=== PATIENT | female | born 1955 | race Caucasian/White ===

== ENCOUNTER 2017-04-02 16:46 | Emergency (ER) | payer BC ==
[2017-04-02] MEDS ORDERED: Sodium Chloride 0.9% 10 ML Syringe FLUSH PRN (16:55)
[2017-04-02] MEDS ORDERED: Ondansetron 4 MG/2 ML SDV IV ONE (16:57)
[2017-04-02] MEDS ORDERED: Sodium Chloride 0.9% 1,000 ML IV ONE (16:57)
[2017-04-02] MEDS ORDERED: Meclizine 12.5 MG Tab PO ONE (17:35)
[2017-04-02 17:36] VITALS: BP 159/64
[2017-04-02] MEDS ORDERED: Dexamethasone 4 MG/ML SDV IVPUSH ONE (17:36)
[2017-04-02 17:43] LABS: CHLORIDE,CL 94 mmol/L (101-111); SODIUM,NA 131 mmol/L (135-145)
[2017-04-02] MEDS ORDERED: Potassium Chloride 10 MEQ Tab.ER PO ONE (17:54)
--- NOTE | 2017-04-02 18:18 | EDM.PDOC ---
Scribed by Suha Land 04/02/17 [id number] for Les Vivar MD ED HPI GENERAL MEDICAL PROBLEM - General Chief Complaint: Gastrointestinal Problem Stated Complaint: sick Time Seen by Provider: 04/02/17 16:55 Source of Information: Reports: Patient, RN, RN Notes Reviewed History Limitations: Reports: No Limitations - History of Present Illness INITIAL COMMENTS - FREE TEXT/NARRATIVE: Arrives from home by private vehicle with complaint of onset of chills with nausea and vomiting 2 days ago. She reports some abdominal discomfort. Denies pain. Denies diarrhea, constipation, urinary symptoms or fevers. She later states that she has felt hot and cold, but she did not check her temperature. Location: Reports: Abdomen Quality: Reports: Ache Severity: Moderate Improves with: Reports: None Worsens with: Reports: None Associated Symptoms: Reports: No Other Symptoms - Related Data Allergies Allergy/AdvReac Type Severity Reaction Status Date / Time No Known Allergies Allergy Verified 04/02/17 17:32 Home Meds: Home Meds Atenolol [Tenormin] 50 mg PO DAILY 10/01/13 [History] Calcium Carbonate/Vitamin D3 [Calcium 250+D] 1 each PO DAILY 10/01/13 [History] Hydrochlorothiazide 25 mg PO DAILY 10/01/13 [History] Lisinopril 40 mg PO DAILY 10/01/13 [History] Multivitamin [Multi Vitamin Daily] 1 each PO DAILY 10/01/13 [History] atorvaSTATin [Lipitor] 80 mg PO BEDTIME 10/01/13 [History] Aspirin/Calcium Carbonate/Mag [Aspirin Buffered 325 mg Tab] 325 mg PO DAILY [History] Nitroglycerin [Nitrostat] 0.4 mg SL ASDIRECTED PRN 07/12/14 [History] Metoprolol Succinate 50 mg PO DAILY 04/02/17 [History] Past Medical History HEENT History: Reports: Impaired Vision, Other (See Below) Other HEENT History: ringing ears, vertigo Cardiovascular History: Reports: CAD, High Cholesterol, Hypertension, Stents Respiratory History: Reports: None Gastrointestinal History: Reports: GI Bleed Genitourinary History: Reports: UTI, Recurrent 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 Musculoskeletal History: Reports: Arthritis, Fracture Neurological History: Reports: None Psychiatric History: Reports: None Endocrine/Metabolic History: Reports: None Hematologic History: Reports: None Immunologic History: Reports: None Oncologic (Cancer) History: Reports: None Dermatologic History: Reports: None - Infectious Disease History Infectious Disease History: Reports: Chicken Pox, Measles - Past Surgical History Cardiovascular Surgical History: Reports: Coronary Artery Stent Social & Family History - Family History Family Medical History: Noncontributory - Tobacco Use Smoking Status *Q: Former Smoker Second Hand Smoke Exposure: Yes - Caffeine Use Caffeine Use: Reports: Coffee - Alcohol Use Days Per Week of Alcohol Use: 0 - Recreational Drug Use Recreational Drug Use: No - Living Situation & Occupation Living situation: Reports: , with Spouse ED ROS GENERAL - Review of Systems Review Of Systems: ROS reveals no pertinent complaints other than HPI. ED EXAM, GENERAL - Physical Exam Exam: See Below Exam Limited By: No Limitations General Appearance: Alert, WD/WN, No Apparent Distress, Other (uncomfortable appearing. ) Eye Exam: Bilateral Eye: Normal Inspection (lateral gaze nystagmus.) Ears: Hearing Grossly Normal Nose: Normal Inspection, Normal Mucosa, No Blood Throat/Mouth: Normal Lips, Normal Teeth, Normal Gums, Normal Oropharynx, Normal Voice, No Airway Compromise, Other (dry oral membranes) Head: Atraumatic, Normocephalic Neck: Normal Inspection, Supple, Non-Tender, Full Range of Motion Respiratory/Chest: No Respiratory Distress, Lungs Clear, No Accessory Muscle Use , Decreased Breath Sounds Cardiovascular: Regular Rate, Rhythm, No Edema GI/Abdominal: Normal Bowel Sounds, Soft, Non-Tender, No Distention. No: Guarding, Rigid, Rebound (Female) Exam: Deferred Rectal (Female) Exam: Deferred Back Exam: Normal Inspection, Full Range of Motion, NT Extremities: Normal Inspection, Normal Range of Motion, Non-Tender, Normal Capillary Refill, No Pedal Edema Neurological: Alert, Oriented, CN II-XII Intact, Normal Cognition, Normal Gait, No Motor/Sensory Deficits Psychiatric: Normal Affect, Normal Mood Skin Exam: Warm, Dry, Intact, No Rash, Pallor EKG INTERPRETATION EKG Date: 04/02/17 Time: 17:13 Rhythm: Other (sinus bradycardia) Rate (Beats/Min): 54 Vendor: Normal P-Wave: Present QRS: Normal ST-T: Normal QT: Normal Course - Vital Signs Last Recorded V/S: Last Vital Signs Temp 35.9 C 04/02/17 17:00 Pulse 55 L 04/02/17 17:00 Resp 16 04/02/17 17:00 BP 159/64 H 04/02/17 17:00 Pulse Ox 97 04/02/17 17:00 - Orders/Labs/Meds Orders: Active Orders 24 hr Category Date Time Status EKG 12 Lead [EKG Documentation Completion] [] STAT Care 04/02/17 16:56 Active Peripheral IV Care [RC] . DIRECTED Care 04/02/17 16:56 Active CULTURE BLOOD [BC] Stat Lab 04/02/17 17:09 Received CULTURE BLOOD [BC] Stat Lab 04/02/17 17:13 Received UA W/MICROSCOPIC [URIN] Stat Lab 04/02/17 16:56 Uncollected Sodium Chloride 0.9% [Saline Flush] Med 04/02/17 16:55 Active 10 ml FLUSH ASDIRECTED PRN Blood Culture x2 Reflex Set [OM.PC] Stat Oth 04/02/17 16:56 Ordered Peripheral IV Insertion Adult [OM.PC] Stat Oth 04/02/17 16:56 Ordered Medication Orders Sodium Chloride (Saline Flush) 10 ml FLUSH ASDIRECTED PRN PRN Reason: Keep Vein Open Last Admin: 04/02/17 17:18 Dose: 10 ml Labs: Laboratory Tests 04/02/17 04/02/17 Range/Units 17:13 17:13 WBC 9.5 (5.0-10.0) 10^3/uL RBC 5.19 (4.2-5.4) 10^6/uL Hgb 14.7 (12.0-16.0) g/dL Hct 43.7 (37.0-47.0) % MCV 84.2 (80-100) fL MCH 28.3 (27.0-34.0) pg MCHC 33.6 (33.0-35.0) g/dL Plt Count 234 (150-450) 10^3/uL Neut % (Auto) 74.9 (42.2-75.2) % Lymph % (Auto) 17.3 L (20.5-50.1) % [place] % (Auto) 7.1 (2-8) % Eos % (Auto) 0.5 L (1.0-3.0) % Baso % (Auto) 0.2 (0.0-1.0) % Sodium 131 L (135-145) mmol/L Potassium 3.3 L (3.6-5.0) mmol/L Chloride 94 L (101-111) mmol/L Carbon Dioxide 24.0 (21.0-31.0) mmol/L Anion Gap 16.3 BUN 11 (7-18) mg/dL Creatinine 0.9 (0.6-1.3) mg/dL Est Cr Clr Drug Dosing 47.65 mL/min Estimated GFR (MDRD) > 60 BUN/Creatinine Ratio 12.22 Glucose 113 H (74-105) mg/dL Calcium 9.0 (8.4-10.2) mg/dl Total Bilirubin 1.0 (0.2-1.0) mg/dL AST 36 (10-42) IU/L ALT 33 (10-60) IU/L Alkaline Phosphatase 93 (42-121) IU/L Troponin I < 0.02 (0.00-0.02) ng/ml Total Protein 7.2 (6.7-8.2) g/dl Albumin 3.9 (3.2-5.5) g/dl Globulin 3.3 Albumin/Globulin Ratio 1.18 Amylase 50 (28-100) U/L Lipase 32 (22-51) U/L Meds: Medications Generic Name Dose Route Start Last Admin Trade Name Freq PRN Reason Stop Dose Admin Sodium Chloride 10 ml 04/02/17 16:55 04/02/17 17:18 Saline Flush FLUSH 10 ml ASDIRECTED PRN Administration Keep Vein Open Discontinued Medications Generic Name Dose Route Start Last Admin Trade Name Anika PRN Reason Stop Dose Admin Dexamethasone 20 mg 04/02/17 17:36 04/02/17 17:46 Dexamethasone IVPUSH 04/02/17 17:37 20 mg ONETIME ONE Administration Diazepam 2.5 mg 04/02/17 17:35 04/02/17 17:52 Valium IVPUSH 04/02/17 17:36 2.5 mg ONETIME ONE Administration Sodium Chloride 1,000 mls @ 999 mls/hr 04/02/17 16:57 04/02/17 17:18 Normal Saline IV 04/02/17 17:57 999 mls/hr .BOLUS ONE Administration Meclizine HCl 25 mg 04/02/17 17:35 04/02/17 17:49 Antivert PO 04/02/17 17:36 25 mg ONETIME ONE Administration Ondansetron HCl 4 mg 04/02/17 16:57 04/02/17 17:16 Zofran IV 04/02/17 16:58 4 mg ONETIME ONE Administration Potassium Chloride 20 meq 04/02/17 17:54 Klor-Con 10 PO 04/02/17 17:55 ONETIME ONE Departure - Departure Time of Disposition: 18:16 Disposition: Home, Self-Care 01 Condition: Fair Clinical Impression: Vertigo - Discharge Information Instructions: Vertigo, [id number] Forms: ED Department Discharge Additional Instructions: RX: Meclizine 25mg. Follow up in clinic if not improving in 2 to 3 days. - My Orders Last 24 Hours: My Active Orders 04/02/17 16:55 Sodium Chloride 0.9% [Saline Flush] 10 ml FLUSH ASDIRECTED PRN 04/02/17 16:56 EKG 12 Lead [EKG Documentation Completion] [RC] STAT Peripheral IV Care [RC] . DIRECTED UA W/MICROSCOPIC [URIN] Stat Blood Culture x2 Reflex Set [OM.PC] Stat Peripheral IV Insertion Adult [OM.PC] Stat 04/02/17 17:09 CULTURE BLOOD [BC] Stat 04/02/17 17:13 CULTURE BLOOD [BC] Stat - Assessment/Plan Last 24 Hours: My Active Orders 04/02/17 16:55 Sodium Chloride 0.9% [Saline Flush] 10 ml FLUSH ASDIRECTED PRN 04/02/17 16:56 EKG 12 Lead [EKG Documentation Completion] [RC] STAT Peripheral IV Care [RC] . DIRECTED UA W/MICROSCOPIC [URIN] Stat Blood Culture x2 Reflex Set [OM.PC] Stat Peripheral IV Insertion Adult [OM.PC] Stat 04/02/17 17:09 CULTURE BLOOD [BC] Stat 04/02/17 17:13 CULTURE BLOOD [BC] Stat I have read and agree with the documentation that has been completed regarding this visit. By signing this record, I attest that the documentation was completed in my physical presence and is an accurate record of the encounter.
--- NOTE | 2017-04-24 09:54 | EKG ---
04/02/2017- FLIP LOMELI - This is a 12-lead standard EKG showing normal sinus rhythm with bradycardia. Ventricular rate of 54 beats per minute. Normal QRS duration and CA interval. No significant ST-T changes. [facility] /[id number]
== END 2017-04-02 18:37 | disposition home or self-care (01) ==
LOC: DL.ED 16:46
DX: R42 Dizziness and giddiness (principal); I10 Essential (primary) hypertension; I25.10 Atherosclerotic heart disease of native coronary artery without angina pectoris; E78.00 Pure hypercholesterolemia, unspecified; M19.90 Unspecified osteoarthritis, unspecified site; Z95.5 Presence of coronary angioplasty implant and graft; Z87.440 Personal history of urinary (tract) infections; Z87.891 Personal history of nicotine dependence; Z79.899 Other long term (current) drug therapy; Z79.82 Long term (current) use of aspirin
CPT/HCPCS: 36415; 80053; 82150; 83690; 84484; 85025; 87040; 93005; 96365; 96375; 99284; A9270; J1100; J2405; J3360; J7030; J7050

== ENCOUNTER 2017-05-14 18:30 | Inpatient (IN) | payer BC ==
--- NOTE | 2017-05-14 18:39 | EDM.PDOC ---
<Jude Bravo - Last Filed: 05/14/17 18:42> ED HPI GENERAL MEDICAL PROBLEM - General Chief Complaint: General Stated Complaint: FAINT AND THROWING UP [id number] Time Seen by Provider: 05/14/17 18:38 Source of Information: Reports: Patient History Limitations: Reports: No Limitations - History of Present Illness INITIAL COMMENTS - FREE TEXT/NARRATIVE: 62 yo white female c/o vertigo symptoms since noon today. Pt. recently seen in this ER for same Onset: Today Onset Date: 05/14/17 Onset Time: 12:00 Duration: Hour(s): Location: Reports: Generalized Severity: Moderate Improves with: Reports: Rest Worsens with: Reports: Movement Associated Symptoms: Reports: No Other Symptoms - Related Data Allergies Allergy/AdvReac Type Severity Reaction Status Date / Time No Known Allergies Allergy Verified 05/14/17 18:43 Home Meds: Home Meds Calcium Carbonate/Vitamin D3 [Calcium 250+D] 1 each PO DAILY 10/01/13 [History] Hydrochlorothiazide 25 mg PO DAILY 10/01/13 [History] Lisinopril 40 mg PO DAILY 10/01/13 [History] Multivitamin [Multi Vitamin Daily] 1 each PO DAILY 10/01/13 [History] atorvaSTATin [Lipitor] 80 mg PO BEDTIME 10/01/13 [History] Aspirin/Calcium Carbonate/Mag [Aspirin Buffered 325 mg Tab] 325 mg PO DAILY [History] Nitroglycerin [Nitrostat] 0.4 mg SL ASDIRECTED PRN 07/12/14 [History] Metoprolol Succinate 50 mg PO DAILY 04/02/17 [History] Past Medical History HEENT History: Reports: Impaired Vision, Other (See Below) Other HEENT History: ringing ears, vertigo Cardiovascular History: Reports: CAD, High Cholesterol, Hypertension, Stents Respiratory History: Reports: None Gastrointestinal History: Reports: GI Bleed Genitourinary History: Reports: UTI, Recurrent 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 Musculoskeletal History: Reports: Arthritis, Fracture Neurological History: Reports: None Psychiatric History: Reports: None Endocrine/Metabolic History: Reports: None Hematologic History: Reports: None Immunologic History: Reports: None Oncologic (Cancer) History: Reports: None Dermatologic History: Reports: None - Infectious Disease History Infectious Disease History: Reports: Chicken Pox, Measles - Past Surgical History Cardiovascular Surgical History: Reports: Coronary Artery Stent Social & Family History - Family History Family Medical History: Noncontributory - Tobacco Use Smoking Status *Q: Former Smoker Used Tobacco, but Quit: Yes Month Tobacco Last Used: unsure Second Hand Smoke Exposure: Yes - Caffeine Use Caffeine Use: Reports: Coffee - Alcohol Use Days Per Week of Alcohol Use: 0 - Recreational Drug Use Recreational Drug Use: No - Living Situation & Occupation Living situation: Reports: , with Spouse ED ROS GENERAL - Review of Systems Review Of Systems: See Below Constitutional: Reports: No Symptoms HEENT: Reports: No Symptoms Respiratory: Reports: No Symptoms Cardiovascular: Reports: No Symptoms Endocrine: Reports: No Symptoms GI/Abdominal: Reports: No Symptoms : Reports: No Symptoms Musculoskeletal: Reports: No Symptoms Skin: Reports: No Symptoms Neurological: Reports: Dizziness Psychiatric: Reports: No Symptoms Hematologic/Lymphatic: Reports: No Symptoms Immunologic: Reports: No Symptoms ED EXAM, GENERAL - Physical Exam Exam: See Below Exam Limited By: No Limitations General Appearance: Alert, No Apparent Distress Eye Exam: Bilateral Eye: EOMI, PERRL Ears: Normal External Exam Ear Exam: Bilateral Ear: TM normal Nose: Normal Inspection Throat/Mouth: Normal Inspection Head: Atraumatic Neck: Normal Inspection Respiratory/Chest: No Respiratory Distress, Lungs Clear Cardiovascular: Normal Peripheral Pulses, Regular Rate, Rhythm, No Edema Peripheral Pulses: 2+: Radial (L), Radial (R) GI/Abdominal: Normal Bowel Sounds, Soft Back Exam: Normal Inspection Extremities: Normal Inspection Neurological: Alert, Oriented, CN II-XII Intact, Other (room spinning sensation) Psychiatric: Normal Affect Skin Exam: Warm Lymphatic: No Adenopathy Course - Vital Signs Last Recorded V/S: Last Vital Signs Temp 35.3 C 05/14/17 18:51 Pulse 56 L 05/14/17 18:37 Resp 18 05/14/17 18:37 BP 153/64 H 05/14/17 18:37 Pulse Ox 99 05/14/17 18:37 - Orders/Labs/Meds Orders: Active Orders 24 hr Category Date Time Status TROPONIN I [CHEM] Stat Lab 05/14/17 19:58 Ordered Potassium Chloride [Klor-Con 10] Med 05/14/17 19:57 Once 40 meq PO ONETIME ONE Medication Orders Potassium Chloride (Klor-Con 10) 40 meq PO ONETIME ONE Stop: 05/14/17 19:58 Labs: Laboratory Tests 05/14/17 05/14/17 Range/Units 18:38 18:38 WBC 10.6 H (5.0-10.0) 10^3/uL RBC 4.96 (4.2-5.4) 10^6/uL Hgb 14.1 (12.0-16.0) g/dL Hct 40.8 (37.0-47.0) % MCV 82.3 (80-100) fL MCH 28.4 (27.0-34.0) pg MCHC 34.6 (33.0-35.0) g/dL Plt Count 280 (150-450) 10^3/uL Neut % (Auto) 60.0 (42.2-75.2) % Lymph % (Auto) 27.5 (20.5-50.1) % [place] % (Auto) 9.9 H (2-8) % Eos % (Auto) 2.0 (1.0-3.0) % Baso % (Auto) 0.6 (0.0-1.0) % Sodium 125 L (135-145) mmol/L Potassium 2.5 L (3.6-5.0) mmol/L Chloride 89 L (101-111) mmol/L Carbon Dioxide 20.0 L (21.0-31.0) mmol/L Anion Gap 18.5 BUN 14 (7-18) mg/dL Creatinine 0.7 (0.6-1.3) mg/dL Est Cr Clr Drug Dosing 61.27 mL/min Estimated GFR (MDRD) > 60 BUN/Creatinine Ratio 20.00 Glucose 142 H (74-105) mg/dL Calcium 9.0 (8.4-10.2) mg/dl Total Bilirubin 1.3 H (0.2-1.0) mg/dL AST 35 (10-42) IU/L ALT 31 (10-60) IU/L Alkaline Phosphatase 102 (42-121) IU/L Total Protein 7.0 (6.7-8.2) g/dl Albumin 3.9 (3.2-5.5) g/dl Globulin 3.1 Albumin/Globulin Ratio 1.26 Meds: Medications Generic Name Dose Route Start Last Admin Trade Name Freq PRN Reason Stop Dose Admin Potassium Chloride 40 meq 05/14/17 19:57 Klor-Con 10 PO 05/14/17 19:58 ONETIME ONE Discontinued Medications Generic Name Dose Route Start Last Admin Trade Name Anika PRN Reason Stop Dose Admin Meclizine HCl 12.5 mg 05/14/17 18:45 05/14/17 18:58 Antivert PO 05/14/17 18:46 12.5 mg ONETIME ONE Administration Ondansetron HCl 4 mg 05/14/17 18:58 05/14/17 19:19 Zofran IV 05/14/17 18:59 4 mg ONETIME ONE Administration Departure - Departure Disposition: Admitted As Inpatient 64 Clinical Impression: Dizziness Syncope Qualifiers: Syncope type: unspecified Qualified Code(s): R55 - Syncope and collapse - Discharge Information Forms: ED Department Discharge - My Orders Last 24 Hours: My Active Orders 05/14/17 19:57 Potassium Chloride [Klor-Con 10] 40 meq PO ONETIME ONE 05/14/17 19:58 TROPONIN I [CHEM] Stat - Assessment/Plan Last 24 Hours: My Active Orders 05/14/17 19:57 Potassium Chloride [Klor-Con 10] 40 meq PO ONETIME ONE 05/14/17 19:58 TROPONIN I [CHEM] Stat <Kt Lopez - Last Filed: 05/14/17 19:59> Course - Re-Assessments/Exams Free Text/Narrative Re-Assessment/Exam: 05/14/17 18:59 re-exam; states this is 3rd time. gets nauseous and dizzy when moves. PMD Tx her with PT did feel better but not permanent. today Sx returned. 05/14/17 19:46 results discussed with pt who is feeling slightly better with nausea but still unsteady. 05/14/17 19:[address] Ennis who kindly admitted pt. Departure - Departure Time of Disposition: 19:59 Condition: Good - My Orders Last 24 Hours: My Active Orders 05/14/17 19:57 Potassium Chloride [Klor-Con 10] 40 meq PO ONETIME ONE 05/14/17 19:58 TROPONIN I [CHEM] Stat - Assessment/Plan Last 24 Hours: My Active Orders 05/14/17 19:57 Potassium Chloride [Klor-Con 10] 40 meq PO ONETIME ONE 05/14/17 19:58 TROPONIN I [CHEM] Stat
[2017-05-14] MEDS ORDERED: Meclizine 12.5 MG Tab PO ONE (18:45)
[2017-05-14] MEDS ORDERED: Ondansetron 4 MG/2 ML SDV IV ONE (18:58)
[2017-05-14 19:13] LABS: CHLORIDE,CL 89 mmol/L (101-111); SODIUM,NA 125 mmol/L (135-145)
[2017-05-14] MEDS ORDERED: Potassium Chloride 10 MEQ Tab.ER PO ONE ×2 (19:57→21:43)
--- NOTE | 2017-05-14 21:03 | PCM.HP ---
H&P History of Present Illness - General Date of Service: 05/14/17 Admit Problem/Dx: pt admitted with: Severe Hypokalemia, Hyponatremia and C/O Vertigo (Spining) with ringing in ear Source of Information: Patient, Old Records History Limitations: Reports: No Limitations - History of Present Illness Initial Comments - Free Text/Narative: Nereyda Sahni~is a 61 y.o.~female with a medical history significant for hypertension, hyperlipidemia, coronary artery disease, and carotid artery disease status post multiple stents placed in the past. Her last stent was in [address] Santamaria. She had last Angiogram in 2014 showed patent stent in LAD . Today she presented to ED with Nausea, lightheadedness and unsteadiness, ringing in ear. she was seen by Nu[facility] at [facility] ( Dr. Chaparro), and also seen by Reinforced Steel Placing Supervisor and Motorcycle Mechanic Apprentice, She also says she hears heart beat in Rt eat all the time. In ED she CT of head again today ( 05/14/17) and the Impression was: No CT evidence for an acute Intracranial abnormality, Onset of Symptoms: Reports: Gradual Duration of Symptoms: Reports: Recurring - Related Data Allergies/Adverse Reactions: Allergies Allergy/AdvReac Type Severity Reaction Status Date / Time No Known Allergies Allergy Verified 05/14/17 18:43 Home Medications: Home Meds Calcium Carbonate/Vitamin D3 [Calcium 250+D] 1 each PO DAILY 10/01/13 [History] Hydrochlorothiazide 25 mg PO DAILY 10/01/13 [History] Lisinopril 40 mg PO DAILY 10/01/13 [History] Multivitamin [Multi Vitamin Daily] 1 each PO DAILY 10/01/13 [History] atorvaSTATin [Lipitor] 80 mg PO BEDTIME 10/01/13 [History] Aspirin/Calcium Carbonate/Mag [Aspirin Buffered 325 mg Tab] 325 mg PO DAILY [History] Nitroglycerin [Nitrostat] 0.4 mg SL ASDIRECTED PRN 07/12/14 [History] Metoprolol Succinate 50 mg PO DAILY 04/02/17 [History] Past Medical History HEENT History: Reports: Impaired Vision, Other (See Below) Other HEENT History: ringing ears, vertigo Cardiovascular History: Reports: CAD, High Cholesterol, Hypertension, Stents Respiratory History: Reports: None Gastrointestinal History: Reports: GI Bleed Genitourinary History: Reports: UTI, Recurrent 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 Musculoskeletal History: Reports: Arthritis, Fracture Neurological History: Reports: None Psychiatric History: Reports: None Endocrine/Metabolic History: Reports: None Hematologic History: Reports: None Immunologic History: Reports: None Oncologic (Cancer) History: Reports: None Dermatologic History: Reports: None - Infectious Disease History Infectious Disease History: Reports: Chicken Pox, Measles - Past Surgical History Cardiovascular Surgical History: Reports: Coronary Artery Stent Social & Family History - Family History Family Medical History: Noncontributory - Tobacco Use Smoking Status *Q: Never Smoker Used Tobacco, but Quit: Yes Month Tobacco Last Used: unsure Second Hand Smoke Exposure: No - Caffeine Use Caffeine Use: Reports: Coffee - Alcohol Use Days Per Week of Alcohol Use: 0 - Recreational Drug Use Recreational Drug Use: No - Living Situation & Occupation Living situation: Reports: , with Spouse H&P Review of Systems - Review of Systems: Review Of Systems: See Below General: Reports: Other (hear heart beat all the time in Rt ear and ringing with spining ). Denies: Fever, Chills, Weakness, Fatigue, Weight Loss HEENT: Reports: Vertigo, Other (spining ear ringing). Denies: Ear Pain, Eye Pain, Headaches, Visual Changes Pulmonary: Denies: Shortness of Breath, Wheezing, Pleuritic Chest Pain, Cough, Sputum Cardiovascular: Denies: Chest Pain, Palpitations, Dyspnea on Exertion, Lightheadedness, Syncope Gastrointestinal: Reports: Vomiting (once). Denies: Abdominal Pain, Diarrhea, Difficulty Swallowing, Nausea Genitourinary: Denies: Dysuria, Frequency, Burning, Urgency Musculoskeletal: Denies: Neck Pain, Shoulder Pain, Back Pain, Joint Swelling, Muscle Pain Skin: Denies: Cyanosis, Jaundice, Dryness, Bruising, Rash Psychiatric: Reports: No Symptoms Neurological: Reports: Dizziness, Difficulty Walking, Gait Disturbance Exam - Exam Exam: See Below - Vital Signs Vital Signs: Last Vital Signs Temp 35.3 C 05/14/17 18:51 Pulse 56 L 05/14/17 18:37 Resp 18 05/14/17 18:37 BP 153/64 H 05/14/17 18:37 Pulse Ox 99 05/14/17 18:37 Weight: 70.307 kg - Exam Quality Assessment: DVT Prophylaxis. No: Supplemental Oxygen, Urinary Catheter General: Alert, Oriented, Cooperative HEENT: Conjunctiva Clear, Mucosa Moist & [place], Pupils Equal, Other (decreased hearing in rt ear) Neck: Supple. No: Lymphadenopathy, JVD Lungs: Clear to Auscultation, Normal Respiratory Effort. No: Crackles, Wheezing Cardiovascular: Regular Rate, Regular Rhythm GI/Abdominal Exam: Normal Bowel Sounds, Soft, Non-Tender, No Organomegaly, No Distention. No: Guarding, Rigid, Rebound, Tender (Female) Exam: Deferred Rectal (Female) Exam: Deferred Back Exam: Normal Inspection, Full Range of Motion Extremities: Normal Inspection, No Pedal Edema Skin: Warm, Intact Neurological: Cranial Nerves Intact, Reflexes Equal Bilateral Neuro Extensive - Mental Status: Alert, Oriented x3, Normal Mood/Affect, Normal Cognition, Memory Intact Neuro Extensive - Motor, Sensory, Reflexes: CN II-XII Intact, Normal Reflexes Psychiatric: Alert, Normal Affect, Normal Mood - Patient Data Result Diagrams: 05/14/17 18:38 05/14/17 18:38 *Q Meaningful Use (ADM) - VTE *Q VTE Criteria *Q: - Stroke *Q Stroke Criteria *Q: - AMI *Q AMI Criteria *Q: - Problem List (1) Hyponatremia SNOMED Code(s): 34742195 ICD Code: E87.1 - HYPO-OSMOLALITY AND HYPONATREMIA Status: Acute Current Visit: Yes (2) Hypokalemia SNOMED Code(s): 10539466 ICD Code: E87.6 - HYPOKALEMIA Status: Acute Current Visit: Yes (3) Dizziness SNOMED Code(s): 773596327 ICD Code: R42 - DIZZINESS AND GIDDINESS Status: Acute Current Visit: Yes (4) Vertigo SNOMED Code(s): 450928630 ICD Code: R42 - DIZZINESS AND GIDDINESS Status: Acute Current Visit: No (5) HTN (hypertension) SNOMED Code(s): 93299569 ICD Code: I10 - ESSENTIAL (PRIMARY) HYPERTENSION Status: Acute Current Visit: Yes Problem List Initiated/Reviewed/Updated: Yes Assessment/Plan Comment:: 62 Y/O Female presented with Severe Tinnitus with Vertigo and severe Hypokalemia and Hyponatremia. Her past history significant for hypertension, Hyperlipidemia and CAD with Stent 1. Severe Hypokalemia: The etiolgy not clear may be poor oral intake but her potassium was at 2.5 meq.L -Will give potassium chloride 40 meq oral and 40 meq IV and will check potassium 1 hr after the completion =Will start IV fluids NS at 100 ml/hr x 12 hrs 2. Hyponatremia: This is also likely poor oral itake as weel the presence of HCTZ -Will stop HCTZ and will start IVF ( NS at 100 ml/hr) -Recheck sodium along with potassium -she has no symptom of hyponatremia and will not start oral sdalt tablet or 3% saline infusion -Will check Urine sodium, urine osmolality and serum osmolality and Uric acid level ( all will take time to get the result) 3. Severe Tinitus with Vertigo: she has been suffering with this for more than a month -She had CT/MRI and was seen by Neurologist, Reinforced Steel Placing Supervisor and Otolaringologist but so far no significant finding -Advise to schedule appointment with Neurologist 4. Hypertension: Bp acceptable and will continue Lisinopril 5. DVT prophylaxis: Continue enoxapain 6. Code Status : Full code 1
[2017-05-14] MEDS ORDERED: Acetaminophen 325 MG Tab PO PRN (21:36)
[2017-05-14] MEDS ORDERED: Docusate Sodium 100 MG Cap PO PRN (21:36)
[2017-05-14] MEDS ORDERED: Potassium Chloride 10 MEQ in Premix Bag 4 BAG IV ONE (21:44)
[2017-05-14] MEDS ORDERED: NS + KCl 20mEq/L 1,000 ML IV SCH (21:45)
[2017-05-14] MEDS ORDERED: Ondansetron 4 MG/2 ML SDV IV PRN (21:48)
[2017-05-14] MEDS: Potassium Chloride 10 MEQ in Premix Bag 1 BAG IV SCH ×2 (22:29→23:52)
[2017-05-15] MEDS: Potassium Chloride 10 MEQ in Premix Bag 1 BAG IV SCH ×2 (01:11→02:34)
[2017-05-15 06:04] LABS: CHLORIDE,CL 99 mmol/L (101-111); SODIUM,NA 132 mmol/L (135-145)
[2017-05-15] MEDS ORDERED: Sodium Chloride 0.9% 1,000 ML IV SCH (06:15)
[2017-05-15] MEDS ORDERED: Aspirin 81 MG Tab.Chew PO SCH (08:00)
[2017-05-15] MEDS ORDERED: atorvaSTATin 20 MG Tab PO SCH (09:00)
[2017-05-15] MEDS ORDERED: Multivitamins,Therapeutic Tab PO SCH (09:00)
[2017-05-15] MEDS ORDERED: Calcium Carbonate/Vitamin D3 1250 MG-200 Unit Tab PO SCH (09:00)
[2017-05-15] MEDS ORDERED: Lisinopril 20 MG Tab PO SCH (09:00)
[2017-05-15] MEDS ORDERED: Metoprolol Succinate 50 MG Tab.ER PO SCH (09:00)
[2017-05-15] MEDS ORDERED: Enoxaparin 40 MG/0.4 ML Syringe SUBCUT SCH (09:00)
[2017-05-15 12:57] VITALS: BP 125/57
[2017-05-16] MEDS ORDERED: Potassium Chloride 10 MEQ in Premix Bag 1 BAG IV SCH (02:00)
--- NOTE | 2017-05-16 04:33 | DISCH ---
DISCHARGE DIAGNOSES: 1. Acute hypokalemia, resolved. 2. Acute hyponatremia, improved. 3. Nausea and vomiting, resolved. 4. Vertigo, resolved. 5. Coronary artery disease with stents by history in 2010 with repeat angio in 2014. 6. Hypertension by history. 7. Long-term hydrochlorothiazide use, discontinued during this admission. BRIEF HISTORY OF PRESENT ILLNESS: Nereyda Sahni is a 62-year-old lady who presented to the Emergency Department on the day of admission. She had been throwing up. She felt faint, but there was no syncope or near syncope. She had previous episodes of feeling nauseous, lightheaded, and unsteady with ringing in the ears and had been seen by Neurology as well as Audiology and ENT, that workup was unremarkable. She again presents to the ER with similar symptoms. Workup in the ER revealed electrolyte abnormalities, and she was admitted for management of her hypokalemia and hyponatremia. PERTINENT LABS AND X-RAYS: CBC on the day of admission showed white count 10.6, hemoglobin and hematocrit of 14 and 40.8, and platelets were normal. Chemistry showed sodium of 125 and potassium of 2.5, which had corrected to 132 and 5.2, respectively on the day of discharge. BUN and creatinine of 9 and 0.8 with a GFR of more than 60. LFTs were unremarkable. Troponin was negative at less than 0.02. A noncontrast CT scan of the head showed no acute intracranial abnormality. There was a focal lucency within the right frontal calvarium, which might reflect a prominent arachnoid granulation, but no other findings of concern. She was on telemetry while receiving IV potassium. Telemetry showed a normal sinus rhythm without ectopy. HOSPITAL COURSE: Ms. Sahni was admitted as an acute inpatient for her electrolyte disturbances. She was given 1 dose of meclizine for dizziness and Zofran for p.r.n. nausea and vomiting. She received potassium supplement both by the oral route and IV. Enoxaparin was used for VTE prophylaxis. Normal saline with additional potassium was also given. She did well overnight. Vital signs were stable. Repeat lab work in the morning showed correction of the sodium and potassium. She was feeling well and felt she could be discharged to home. Review of her clinical data shows good oral intake. She was voiding well. She was tolerating her diet. Vital signs were stable, and she was afebrile. DISCHARGE PHYSICAL EXAMINATION: General: On the morning of discharge, she was sitting comfortably in bed. Vital Signs: Blood pressure was 118/58 and prior to discharge 125/57, pulse 58 and regular, respiratory rate 20, oxygen saturation 96% on room air, and temperature 97.1. Weight 155 pounds and height 5 feet 1 inch. HEENT: Unremarkable. ENT was clear. Chest: Clear. Heart: Regular. Abdomen: Benign. Neurologic: She was intact. She was alert and oriented without deficits. DISPOSITION: She will be discharged to home in stable condition. Prior to hospitalization, she was on hydrochlorothiazide 25 mg daily and had been on that for quite some time. The hydrochlorothiazide was discontinued as this may be a contributing factor to the hyponatremia and hypokalemia. DISCHARGE MEDICATIONS: Include: 1. Atorvastatin 80 mg daily. 2. Nitroglycerin p.r.n. 3. Multivitamin 1 tablet daily. 4. Metoprolol succinate 50 mg daily. 5. Lisinopril 40 mg daily. 6. Calcium carbonate with vitamin D3 one tablet daily. 7. Aspirin EC 81 mg daily. ALLERGIES: No known allergies. We asked that she return to clinic at the end of this week, and we have ordered a repeat sodium, potassium, and magnesium. She will follow up with her primary provider, Dr. Almaguer. She does have an appointment to see him on 07/06. She will call Dr. Almaguer's nurse on Monday to get the results of the repeat lab work. Otherwise, she will follow usual diet and activity level as tolerated. She may drive and shower, and she should return to clinic or ER for any symptoms of concern. CONDITION AT TIME OF DISCHARGE: Much improved and stable. CODE STATUS DURING THIS ADMISSION: Full code. [facility] /[id number]
== END 2017-05-15 14:40 | disposition home or self-care (01) | DRG 425 ==
LOC: DL.ED 18:30 → INTOOBSV 20:31 → OBSVTOIN 20:31 → UNDOADMOB 20:31 → DL.MS 20:31 → OBSVTOIN 21:36 → DL.MS 21:36
PROVIDERS: ADMIT Internal Medicine Nephrology; ATTEND Internal Medicine Nephrology
DX: E87.6 Hypokalemia (principal); E87.1 Hypo-osmolality and hyponatremia; R55 Syncope and collapse; R42 Dizziness and giddiness; H93.19 Tinnitus, unspecified ear; R11.2 Nausea with vomiting, unspecified; I25.10 Atherosclerotic heart disease of native coronary artery without angina pectoris; I10 Essential (primary) hypertension; Z95.5 Presence of coronary angioplasty implant and graft; E78.00 Pure hypercholesterolemia, unspecified; H54.7 Unspecified visual loss; M19.90 Unspecified osteoarthritis, unspecified site; Z79.82 Long term (current) use of aspirin; Z79.899 Other long term (current) drug therapy; Z87.891 Personal history of nicotine dependence
CPT/HCPCS: 36415; 70450; 80048; 80053; 83735; 84484; 85025; 96374; 99285; A9270-GY; J1650; J2405; J3480; J7030

== ENCOUNTER 2020-03-08 07:58 | Emergency (ER) | payer MEDICARE, BC ==
--- NOTE | 2020-03-08 08:06 | EDM.PDOC ---
ED HPI GENERAL MEDICAL PROBLEM - General Chief Complaint: Laceration Stated Complaint: THUMB LACERATION Time Seen by Provider: 03/08/20 08:05 Source of Information: Reports: Patient, RN, RN Notes Reviewed History Limitations: Reports: No Limitations - History of Present Illness INITIAL COMMENTS - FREE TEXT/NARRATIVE: Pt presents to ER with c/o laceration on right thumb. Denies any other injury. Tetanus vaccine is up to date per pt. Onset: Today, Sudden Duration: Constant Location: Reports: Upper Extremity, Right Quality: Reports: Ache Severity: Mild Improves with: Reports: None Worsens with: Reports: None Associated Symptoms: Reports: No Other Symptoms - Related Data Allergies Allergy/AdvReac Type Severity Reaction Status Date / Time No Known Allergies Allergy Verified 03/08/20 08:03 Home Meds: Home Meds Calcium Carbonate/Vitamin D3 [Calcium 250+D] 1 each PO DAILY 10/01/13 [History] Lisinopril 40 mg PO DAILY 10/01/13 [History] Multivitamin [Multi-Vitamin Daily] 1 each PO DAILY 10/01/13 [History] atorvaSTATin [Lipitor] 80 mg PO DAILY 10/01/13 [History] Nitroglycerin [Nitrostat] 0.4 mg SL ASDIRECTED PRN 07/12/14 [History] Metoprolol Succinate 50 mg PO DAILY 04/02/17 [History] Aspirin 81 mg PO BRK 05/14/17 [History] Pantoprazole Sodium [Protonix] 40 mg PO DAILY 03/08/20 [History] Past Medical History HEENT History: Reports: Impaired Vision, Other (See Below) Other HEENT History: ringing ears, vertigo Cardiovascular History: Reports: CAD, High Cholesterol, Hypertension, Stents Respiratory History: Reports: None Gastrointestinal History: Reports: GI Bleed Genitourinary History: Reports: UTI, Recurrent [employer] History: Reports: None Musculoskeletal History: Reports: Arthritis, Fracture Neurological History: Reports: None Psychiatric History: Reports: None Endocrine/Metabolic History: Reports: None Hematologic History: Reports: None Immunologic History: Reports: None Oncologic (Cancer) History: Reports: None Dermatologic History: Reports: None - Infectious Disease History Infectious Disease History: Reports: Chicken Pox, Measles - Past Surgical History Cardiovascular Surgical History: Reports: Coronary Artery Stent Social & Family History - Family History Family Medical History: Noncontributory - Caffeine Use Caffeine Use: Reports: Coffee - Living Situation & Occupation Living situation: Reports: , with Spouse Review of Systems - Review of Systems Review Of Systems: Comprehensive ROS is negative, except as noted in HPI. ED EXAM, GENERAL - Physical Exam Exam: See Below Exam Limited By: No Limitations General Appearance: Alert, WD/WN, No Apparent Distress Respiratory/Chest: No Respiratory Distress Cardiovascular: Normal Peripheral Pulses Extremities: Normal Range of Motion, Normal Capillary Refill, Other (1.5cm laceration to dorsum of right thumb to depth of subcutaneous tissue, no tendon injury, no active bleeding, no foreign body.). No: Joint Swelling Neurological: Alert, Oriented, No Motor/Sensory Deficits ED TRAUMA EXTREMITY PROCEDURES - Laceration/Wound Repair Right Dorsal Digit - 1st (Thumb) Lac/Wound Length In cm: 1.5 Appearance: Subcutaneous, Linear Distal NVT: Neuro & Vascular Intact, No Tendon Injury Local Anesthesia - Lidocaine (Xylocaine): 1% Plain Local Anesthetic Volume: 4cc Skin Prep: Chlorhexidine (Hibiciens), Saline, Sterile Drape Saline Irrigation (cc's): 1,000 Exploration/Debridement/Repair: Wound Explored, In a Bloodless Field, Explored to Base, Minimal Debridement, Minimally Undermined Closed With: Sutures Suture Size: 4-0 # of Sutures: 4 Suture Type: Nylon, Interrupted, Simple Sterile Dressing Applied: Nurse Tetanus Status Addressed: Yes Complications: No Course - Orders/Labs/Meds Orders: Active Orders 24 hr Category Date Time Status Bacitracin [Bacitracin Oint 1 GM] Med 03/08/20 08:08 Once 1 dose TOP ONETIME ONE Lidocaine 1% [Xylocaine-MPF 1%] Med 03/08/20 08:08 Once 30 ml INJECT ONETIME ONE Departure - Departure Time of Disposition: 08:50 Disposition: Home, Self-Care 01 Condition: Good Clinical Impression: Laceration of right thumb Qualifiers: Encounter type: initial encounter Damage to nail status: without damage Foreign body presence: without foreign body Qualified Code(s): S61.011A - Laceration without foreign body of right thumb without damage to nail, initial encounter - Discharge Information *PRESCRIPTION DRUG MONITORING PROGRAM REVIEWED*: Not Applicable *COPY OF PRESCRIPTION DRUG MONITORING REPORT IN PATIENT ARACELI: Not Applicable Instructions: Sutured Wound Care Forms: ED Department Discharge Additional Instructions: Follow up in clinic in 7 to 10 days for suture removal. - My Orders Last 24 Hours: My Active Orders 03/08/20 08:08 Bacitracin [Bacitracin Oint 1 GM] 1 dose TOP ONETIME ONE Lidocaine 1% [Xylocaine-MPF 1%] 30 ml INJECT ONETIME ONE - Assessment/Plan Last 24 Hours: My Active Orders 03/08/20 08:08 Bacitracin [Bacitracin Oint 1 GM] 1 dose TOP ONETIME ONE Lidocaine 1% [Xylocaine-MPF 1%] 30 ml INJECT ONETIME ONE
[2020-03-08] MEDS ORDERED: Lidocaine 1% 30 ML SDV INJECT ONE (08:08)
[2020-03-08] MEDS ORDERED: Bacitracin Oint 1 GM U/D Packet TOP ONE (08:08)
[2020-03-08 08:19] VITALS: PULSE 56
[2020-03-08 08:39] VITALS: BP 185/85
== END 2020-03-08 08:37 | disposition home or self-care (01) ==
LOC: DL.ED 07:58
DX: S61.011A Laceration without foreign body of right thumb without damage to nail, initial encounter (principal); E78.00 Pure hypercholesterolemia, unspecified; I25.10 Atherosclerotic heart disease of native coronary artery without angina pectoris; I10 Essential (primary) hypertension; Z95.5 Presence of coronary angioplasty implant and graft; Z79.899 Other long term (current) drug therapy; W26.9XXA Contact with unspecified sharp object(s), initial encounter
CPT/HCPCS: 12001; 99282; J2001